=== PATIENT | female | born 1955 | race Caucasian/White ===

== ENCOUNTER 2018-01-07 11:04 | Emergency (ER) | payer SELFPAY ==
[2018-01-07 11:54] VITALS: BP 141/65
--- NOTE | 2018-01-07 12:38 | UC ---
Ignacio Zuniga Angela, scribed for Alexandria Velazquez MD on 01/07/18 at 1231 . Lower Extremity/Ankle HPI - HPI Summary HPI Summary: This pt is a 62 y/o female presenting to [facility] c/o right foot pain x3 weeks. Pt reports she was walking a little over 3 weeks ago and noticed pain on the dorsal aspect of her foot. Pt is a runner with hx of osteoporosis. She thought it was a stress fracture but notes her pain gradually worsened throughout that day. Pt notes that now she is unable to put full pressure on the ball of her foot and is walking with a limp. She notes her pain has been mildly radiating up her leg. She has not taking anything for the pain. She currently states she has a migraine headache and has taken Indomethacin. No relief in her foot pain with this med. Allergies to codeine and Lamotil. Her PCP is Dr. Jacquelyn Connelly. Patients medication reviewed this visit. - History of Current Complaint Chief Complaint: UCLowerExtremity Stated Complaint: FOOT PAIN Time Seen by Provider: 01/07/18 12:24 Hx Obtained From: Patient Onset/Duration: Lasting Weeks, Still Present Severity Currently: Moderate Pain Intensity: 5 Pain Scale Used: 0-10 Numeric Aggravating Factor(s): Ambulation Alleviating Factor(s): Rest Able to Bear Weight: Yes Related History: Other - while walking - Allergies/Home Medications Allergies/Adverse Reactions: Allergies Allergy/AdvReac Type Severity Reaction Status Date / Time codeine Allergy Unknown Verified 01/07/18 11:41 Reaction Details egg yolk Allergy Unknown Verified 01/07/18 11:41 Reaction Details gluten Allergy Unknown Verified 01/07/18 11:41 Reaction Details lamotil Allergy Intermediate Rash Uncoded 12/22/15 14:50 DAIRY AdvReac Severe Constipatio Uncoded 12/22/15 14:50 n Home Medications: Home Medications Dextroamphetamine/Amphetamine [Adderall 30 mg Tablet] 45 mg PO 01/07/18 [History ] PMH/Surg Hx/FS Hx/Imm Hx - Additional Past Medical History Additional PMH: PMHx: osteopenia in the hips, osteoporosis Endocrine History: Thyroid Disease Other GI/ History: IBS Neurological History: Migraine Other History Of: Negative For: Anticoagulant Therapy - Surgical History Surgical History: Yes Surgery Procedure, Year, and Place: MASTOPEXY 2009, PARTIAL HYSTERECTOMY 2007, TRINIDAD CYST REMOVED LT KNEE 2001,LUMPECTOMY RT BREAST, ANAL FISSURE REPAIR 1997 ( ?) - Family History Family History: Father: reflux - Social History Occupation: Employed Full-time Lives: With Family Alcohol Use: None Substance Use Type: None Smoking Status (MU): Never Smoked Tobacco Have You Smoked in the Last Year: No - Immunization History Most Recent Influenza Vaccination: 2011 Most Recent Tetanus Shot: 2009 Most Recent Pneumonia Vaccination: [facility] Review of Systems Constitutional: Negative Skin: Negative Eyes: Negative ENT: Negative Respiratory: Negative Cardiovascular: Negative Gastrointestinal: Negative Genitourinary: Negative Motor: Negative Neurovascular: Negative Musculoskeletal: Other: - right foot pain Neurological: Headache Psychological: Negative All Other Systems Reviewed And Are Negative: Yes Physical Exam Triage Information Reviewed: Yes Appearance: Well-Appearing, No Pain Distress, Well-Nourished Vital Signs: Initial Vital Signs Temp 98.3 F 01/07/18 11:44 Pulse 70 01/07/18 11:44 Resp 14 01/07/18 11:44 BP 141/65 01/07/18 11:44 Pulse Ox 99 01/07/18 11:44 Vital Signs Reviewed: Yes Eyes: Positive: Conjunctiva Clear ENT: Positive: Hearing grossly normal Neck: Positive: Supple Respiratory: Positive: No respiratory distress, No accessory muscle use Cardiovascular: Positive: Other: - 2+ DP, PT CBT < 2 sec Musculoskeletal: Positive: Other: - + flex/ext knee, ricardo + great toe extension + TTP mid foot, dorsum mid metatarsals - no crepitus No pain along phalanges Neurological Exam: Normal Neurological: Positive: Alert Psychological Exam: Normal Psychological: Positive: Normal Response To Family Skin Exam: Normal Diagnostics - Radiology Right foot XR Xray Interpretation: No Acute Changes - IMPRESSION: No acute osseous injury. If symptoms persist, recommend repeat imaging. Dr. Velazquez has reviewed this radiology report. Radiology Interpretation Completed By: Radiologist Re-Evaluation - Re-Evaluation First Eval Re-Evaluation Time: 13:20 Comment: I reviewed the XR results with the pt. She will be placed in jane wrap. Pt will be given crutches. Lower Extremity Course/Dx - Course Course Of Treatment: Blood pressure noted and patient informed to follow up with PCP. Pt with pain along dorsum mid tarsals. CSM intact. suspect sprain. will check xray for ?fx. jane. crutches. ice. elevate - Differential Dx/Diagnosis Provider Diagnoses: foot sprain Discharge - Sign-Out/Discharge Documenting (check all that apply): Discharge/Admit/Transfer - discharge - Discharge Plan Condition: Stable Disposition: HOME Patient Education Materials: Foot Sprain (ED) Forms: *Gen. Provider Communication Referrals: [facility] [Provider Group] Jacquelyn Connelly MD [Primary Care Provider] - Additional Instructions: - use crutches until you can walk normally without a limp - wear jane wrap for comfort and support - Okay to take Tylenol 650mg every 6 hours for pain - okay to apply ice (wrapped in a towel) 20 minutes at a time, 2-3 times a day - contact your doctor, your database specialist, or the sports medicine clinic to schedule a follow-up appointment next week - Billing Disposition and Condition Condition: STABLE Disposition: HOME The documentation as recorded by the Ignacio adams Angela accurately reflects the service I personally performed and the decisions made by , Alexandria Velazquez MD.
--- NOTE | 2018-01-07 13:11 | RAD ---
HISTORY: Distal third and fourth metatarsal pain COMPARISONS: January 16, 2015 VIEWS: 3, Frontal, lateral, and oblique views of the right foot FINDINGS: BONE DENSITY: Normal. BONES: There is no displaced fracture. JOINTS: There is no arthropathy. ALIGNMENT: There is no dislocation. SOFT TISSUES: Unremarkable. OTHER FINDINGS: None. IMPRESSION: NO ACUTE OSSEOUS INJURY. IF SYMPTOMS PERSIST, RECOMMEND REPEAT IMAGING.
== END 2018-01-07 13:36 | disposition home or self-care (01) ==
LOC: UCEAST 11:04
DX: M79.671 Pain in right foot (principal); G43.909 Migraine, unspecified, not intractable, without status migrainosus; M85.88 Other specified disorders of bone density and structure, other site; M81.0 Age-related osteoporosis without current pathological fracture; E07.9 Disorder of thyroid, unspecified; K58.9 Irritable bowel syndrome, unspecified; Z88.5 Allergy status to narcotic agent
CPT/HCPCS: 99213; G0463